=== PATIENT | male | born 1985 | race Caucasian/White ===

== ENCOUNTER 2020-11-06 01:52 | Inpatient (IN) ==
[2020-11-06] MEDS ORDERED: ALBUT/IPRATROP 3MG/0.5MG NEB 3 ML VIAL INH STA (03:04)
[2020-11-06] MEDS ORDERED: SODIUM CHLORIDE 0.9% 1000ML 1,000 ML IV SCH ×2 (03:15→08:46)
[2020-11-06 03:42] LABS: Basophils # (auto) 0.01 K/uL (0-0.2); Basophils % (auto) 0.2 %; Hematocrit (blood only) 40.5 % (42-52); Hemoglobin 14.4 g/dL (14.0-18.0); Immature Granulocytes # (auto) 0.03 K/uL (0.00-0.02); Immature Granulocytes % (auto) 0.5 %; Lymphocytes # (auto) 0.89 K/uL (1.2-3.4); Lymphocytes % (auto) 13.6 %; Mean Corpuscular Hemoglobin 30.3 pg (25-34); Mean Corpuscular Hgb Conc 35.6 g/dL (32-36); Mean Corpuscular Volume 85.1 fL (80-100); Mean Platelet Volume 10.4 fL (7.4-10.4); Monocytes # (auto) 0.54 K/uL (0.11-0.59); Monocytes % (auto) 8.2 %; Neutrophils # (auto) 5.08 K/uL (1.4-6.5); Neutrophils % (auto) 77.5 %; Platelet Count 250 K/uL (130-400); RDW Coefficient of Variation 12.6 % (11.5-14.5); RDW Standard Deviation 39.4 fL (36.4-46.3); Red Blood Count 4.76 M/uL (4.7-6.1); White Blood Count 6.55 K/uL (4.8-10.8)
[2020-11-06 03:55] LABS: Partial Thromboplastin Ratio 0.9; Partial Thromboplastin Time 24.8 Seconds (21.0-31.0); Prothrombin Time 9.8 Seconds (9.0-12.0)
[2020-11-06 04:19] LABS: Alanine Aminotransferase 111 U/L (12-78); Albumin Globulin Ratio 0.7 (0.9-2); Albumin Level 3.2 gm/dl (3.4-5.0); Alkaline Phosphatase 161 U/L (45-117); Aspartate Aminotransferase 80 U/L (15-37); BUN Creatinine Ratio 14.8 (10-20); Bilirubin,Total 0.8 mg/dl (0.2-1); Blood Urea Nitrogen 11 mg/dl (7-18); Calcium 8.6 mg/dl (8.5-10.1); Carbon Dioxide 27 mmol/L (21-32); Chloride 106 mmol/L (98-107); Creatinine Clr Calc Pharmacy 147.9 ml/min; Est GFR (African American) 140.1; Est GFR (Non-African American) 120.9; Globulin 4.3 gm/dl (2.5-4.0); Glucose 133 mg/dl (70-99); Magnesium 2.2 mg/dl (1.8-2.4); Potassium 4.2 mmol/L (3.5-5.1); Sodium 138 mmol/L (136-145); Total Protein 7.5 gm/dl (6.4-8.2); Troponin I < 0.015 ng/ml (0-0.045)
[2020-11-06] MEDS ORDERED: OPTIRAY 350 500ml IV ONE (05:36)
--- NOTE | 2020-11-06 07:01 | Emergency Department Note ---
History of Present Illness General Chief complaint: Shortness of Breath/Dyspnea Stated complaint: SOB, COVID+10/28/20 Source: patient and RN notes reviewed Mode of arrival: ambulatory Limitations: no limitations History of Present Illness Provider complaint: SOB, COVID+ This pt is a 35 yo male who presents to the ED with c/o SOB, cough and is known to be COVID + as of 10/28. He states he started prednisone with his PCP yesterday but sx seems to be worsening. He began checking his pulse ox and has noted it to be in the mid to high 80s at times. He is feeling discouraged as he hasn't seen his and children for ~2 weeks now. He denies high fecers, but admits to dry cough, nausea and some CP with cough. 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 and A total of 10 systems reviewed and were otherwise negative Physical Exam Vital Signs Vital Signs - 24 hr 11/06/20 01:57 11/06/20 02:58 11/06/20 03:06 Temperature 36.6 C Temperature Source Temporal Artery Scan Pulse Rate 105 H 96 H 96 H Pulse Rate from SpO2 Sensor 97 H 98 H Respiratory Rate 18 22 25 H Respiratory Effort / Characteristics Blood Pressure 164/83 H 146/90 H Blood Pressure Mean 110 108 Blood Pressure Position Sitting Pulse Oximetry 93 92 92 Oxygen Delivery Method Room Air Oxygen Flow Rate Sepsis Recent Fever Within 48 Hours No Sepsis New/Unexplained Change in Mental Status No Sepsis Action Taken by Nursing No Action Required 11/06/20 03:18 11/06/20 03:30 11/06/20 03:31 Temperature Temperature Source Pulse Rate 100 H 96 H 98 H Pulse Rate from SpO2 Sensor 100 H 96 H 97 H Respiratory Rate 23 20 25 H Respiratory Effort / Characteristics Blood Pressure 140/83 143/83 H Blood Pressure Mean 102 103 Blood Pressure Position Pulse Oximetry 93 93 94 Oxygen Delivery Method Oxygen Flow Rate Sepsis Recent Fever Within 48 Hours Sepsis New/Unexplained Change in Mental Status Sepsis Action Taken by Nursing 11/06/20 04:00 11/06/20 04:01 11/06/20 04:03 Temperature Temperature Source Pulse Rate 105 H 108 H Pulse Rate from SpO2 Sensor 104 H 107 H Respiratory Rate 24 26 H 22 Respiratory Effort / Characteristics Non-Labored Spontaneous Blood Pressure 137/79 Blood Pressure Mean 98 Blood Pressure Position Pulse Oximetry 94 94 94 Oxygen Delivery Method Nasal Cannula Oxygen Flow Rate 3 3 3 Sepsis Recent Fever Within 48 Hours Sepsis New/Unexplained Change in Mental Status Sepsis Action Taken by Nursing 11/06/20 04:30 11/06/20 04:31 11/06/20 05:00 Temperature Temperature Source Pulse Rate 109 H 108 H 111 H Pulse Rate from SpO2 Sensor 109 H 109 H 112 H Respiratory Rate 24 24 26 H Respiratory Effort / Characteristics Blood Pressure 131/72 135/74 Blood Pressure Mean 91 94 Blood Pressure Position Pulse Oximetry 91 91 88 L Oxygen Delivery Method Oxygen Flow Rate 3 3 3 Sepsis Recent Fever Within 48 Hours Sepsis New/Unexplained Change in Mental Status Sepsis Action Taken by Nursing 11/06/20 05:01 11/06/20 05:32 11/06/20 05:33 Temperature Temperature Source Pulse Rate 115 H 122 H 119 H Pulse Rate from SpO2 Sensor 117 H 122 H 120 H Respiratory Rate 25 H 47 H 24 Respiratory Effort / Characteristics Blood Pressure 138/72 Blood Pressure Mean 94 Blood Pressure Position Pulse Oximetry 88 L 92 92 Oxygen Delivery Method Oxygen Flow Rate 3 5 5 Sepsis Recent Fever Within 48 Hours Sepsis New/Unexplained Change in Mental Status Sepsis Action Taken by Nursing 11/06/20 06:00 11/06/20 06:01 Temperature Temperature Source Pulse Rate 110 H 114 H Pulse Rate from SpO2 Sensor 109 H 114 H Respiratory Rate 18 31 H Respiratory Effort / Characteristics Blood Pressure 137/71 Blood Pressure Mean 93 Blood Pressure Position Pulse Oximetry 91 91 Oxygen Delivery Method Oxygen Flow Rate 5 5 Sepsis Recent Fever Within 48 Hours Sepsis New/Unexplained Change in Mental Status Sepsis Action Taken by Nursing Vital signs reviewed. General: Somewhat ill-appearing 35 yo male, in no significant distress. HEENT: No scleral icterus, PERRLA, neck supple. Atraumatic. Cardiovascular: Regular rate and rhythm, no extra sounds. Pulmonary: Coarse breath sounds to auscultation bilaterally, normal work of breathing. Dry cough. Abdomen: Soft, nontender, nondistended, positive bowel sounds. Musculoskeletal: Atraumatic, no peripheral edema. Neurologic: Patient awake alert and oriented x 3 Skin: Warm, dry, no rash Course Administered Medications Discontinued Medications Acetaminophen (Acetaminophen 325 Mg Tab) 650 mg PO Q4H PRN PRN Reason: Pain or Fever Stop: 12/06/20 08:45 Last Admin: 11/06/20 10:20 Dose: 650 mg Documented by: [id number] Albuterol (Albut/Ipratrop 3mg/0.5mg Neb 3 Ml Vial) 3 ml INH NOW STA Stop: 11/06/20 03:05 Last Admin: 11/06/20 04:01 Dose: 3 ml Documented by: [id number] Enoxaparin Sodium (Enoxaparin Inj 40 Mg/0.4 Ml Syr) 40 mg SQ Q24H [facility] Stop: 12/06/20 08:59 Last Admin: 11/09/20 08:27 Dose: 40 mg Documented by: [id number] Admin: 11/08/20 08:30 Dose: 40 mg Documented by: [id number] Admin: 11/07/20 08:32 Dose: 40 mg Documented by: [id number] Admin: 11/06/20 10:13 Dose: 40 mg Documented by: [id number] Sodium Chloride (Nss 1000ml) 1,000 mls @ 999 mls/hr IV .Q1H1M ERIN Stop: 11/06/20 04:15 Last Infusion: 11/06/20 04:34 Dose: 0 mls/hr Documented by: [id number] Admin: 11/06/20 03:25 Dose: 999 mls/hr Documented by: [id number] Sodium Chloride (Nss 1000ml) 1,000 mls @ 80 mls/hr IV .[id number] ERIN Stop: 11/06/20 21:15 Last Infusion: 11/07/20 00:32 Dose: 0 mls/hr Documented by: [id number] Infusion: 11/06/20 12:05 Dose: 80 mls/hr Documented by: [id number] Infusion: 11/06/20 10:20 Dose: 0 mls/hr Documented by: [id number] Admin: 11/06/20 10:17 Dose: 80 mls/hr Documented by: [id number] Remdesivir 200 mg/ Sodium (Chloride) 250 mls @ 125 mls/hr IV 0930 ONE; Protocol Stop: 11/06/20 11:29 Last Infusion: 11/06/20 12:05 Dose: 0 mls/hr Documented by: [id number] Admin: 11/06/20 10:09 Dose: 125 mls/hr Documented by: [id number] Remdesivir 100 mg/ Sodium (Chloride) 250 mls @ 250 mls/hr IV Q24H ERIN; Protocol Stop: 11/10/20 12:59 Last Infusion: 11/08/20 12:32 Dose: 0 mls/hr Documented by: [id number] Admin: 11/08/20 11:31 Dose: 250 mls/hr Documented by: [id number] Infusion: 11/07/20 13:27 Dose: 0 mls/hr Documented by: [id number] Admin: 11/07/20 12:19 Dose: 250 mls/hr Documented by: [id number] Dexamethasone 6 mg/ Syringe 1.5 mls @ 1 mls/min IV DAILY ERIN Stop: 11/16/20 08:59 Last Admin: 11/09/20 08:27 Dose: 1 mls/min Documented by: [id number] Admin: 11/08/20 08:30 Dose: 1 mls/min Documented by: [id number] Admin: 11/07/20 08:32 Dose: 1 mls/min Documented by: [id number] Admin: 11/06/20 10:11 Dose: 1 mls/min Documented by: [id number] Ioversol (Optiray 350 500ml) 110 ml IV ONCE ONE Stop: 11/06/20 05:37 Last Admin: 11/06/20 05:36 Dose: 110 ml Documented by: [id number] Sodium Chloride (Sodium Chloride 0.9% 10ml Flush) 30 ml IV DAILY@1300 ERIN Stop: 11/10/20 13:01 Last Admin: 11/08/20 13:39 Dose: 30 ml Documented by: [id number] Admin: 11/07/20 12:19 Dose: 30 ml Documented by: [id number] Admin: 11/06/20 12:05 Dose: 30 ml Documented by: [id number] Medical Decision Making Differential Diagnosis Viral syndrome, COVID, pharyngitis, pneumonia, influenza, meningitis, urinary tract infection, sepsis, bacteremia, as well as other pathologies. Medical Records Attestation: I reviewed the patient's medical records. Home Medications Current Medication List: was personally reviewed by me Laboratory Data Attestation: I reviewed the patient's lab results. Result diagrams: 11/07/20 05:43 11/09/20 07:49 Lab Results 11/06/20 11/06/20 11/06/20 Range/Units 03:24 03:30 03:30 WBC 6.55 (4.8-10.8) K/uL RBC 4.76 (4.7-6.1) M/uL Hgb 14.4 (14.0-18.0) g/dL Hct 40.5 L (42-52) % MCV 85.1 (80-100) fL MCH 30.3 (25-34) pg MCHC 35.6 (32-36) g/dL RDW Std Deviation 39.4 (36.4-46.3) fL RDW Coeff of Yina 12.6 (11.5-14.5) % Plt Count 250 (130-400) K/uL MPV 10.4 (7.4-10.4) fL Immature Gran % (Auto) 0.5 % Neut % (Auto) 77.5 % Lymph % (Auto) 13.6 % [place] % (Auto) 8.2 % Eos % (Auto) 0.0 % Baso % (Auto) 0.2 % Neut # (Auto) 5.08 (1.4-6.5) K/uL Lymph # (Auto) 0.89 L (1.2-3.4) K/uL [place] # (Auto) 0.54 (0.11-0.59) K/uL Eos # (Auto) 0.00 (0-0.5) K/uL Baso # (Auto) 0.01 (0-0.2) K/uL Immature Gran # (Auto) 0.03 H (0.00-0.02) K/uL PT (9.0-12.0) Seconds INR (0.9-1.1) APTT (21.0-31.0) Seconds PTT Ratio Sodium 138 (136-145) mmol/L Potassium 4.2 (3.5-5.1) mmol/L Chloride 106 (98-107) mmol/L Carbon Dioxide 27 (21-32) mmol/L Anion Gap 5.0 (3-11) BUN 11 (7-18) mg/dl Creatinine 0.72 (0.6-1.4) mg/dl Est Cr Clr Drug Dosing 147.9 ml/min Est GFR ( Amer) 140.1 Est GFR (Non-Af Amer) 120.9 BUN/Creatinine Ratio 14.8 (10-20) Glucose 133 H (70-99) mg/dl Calcium 8.6 (8.5-10.1) mg/dl Magnesium 2.2 (1.8-2.4) mg/dl Total Bilirubin 0.8 (0.2-1) mg/dl AST 80 H (15-37) U/L ALT 111 H (12-78) U/L Alkaline Phosphatase 161 H (45-117) U/L Troponin I < 0.015 (0-0.045) ng/ml Total Protein 7.5 (6.4-8.2) gm/dl Albumin 3.2 L (3.4-5.0) gm/dl Globulin 4.3 H (2.5-4.0) gm/dl Albumin/Globulin Ratio 0.7 L (0.9-2) Procalcitonin 0.20 (0-0.5) ng/ml Specimen Hemolysis 11/06/20 Range/Units 03:30 WBC (4.8-10.8) K/uL RBC (4.7-6.1) M/uL Hgb (14.0-18.0) g/dL Hct (42-52) % MCV (80-100) fL MCH (25-34) pg MCHC (32-36) g/dL RDW Std Deviation (36.4-46.3) fL RDW Coeff of Yina (11.5-14.5) % Plt Count (130-400) K/uL MPV (7.4-10.4) fL Immature Gran % (Auto) % Neut % (Auto) % Lymph % (Auto) % [place] % (Auto) % Eos % (Auto) % Baso % (Auto) % Neut # (Auto) (1.4-6.5) K/uL Lymph # (Auto) (1.2-3.4) K/uL [place] # (Auto) (0.11-0.59) K/uL Eos # (Auto) (0-0.5) K/uL Baso # (Auto) (0-0.2) K/uL Immature Gran # (Auto) (0.00-0.02) K/uL PT 9.8 (9.0-12.0) Seconds INR 1.0 (0.9-1.1) APTT 24.8 (21.0-31.0) Seconds PTT Ratio 0.9 Sodium (136-145) mmol/L Potassium (3.5-5.1) mmol/L Chloride (98-107) mmol/L Carbon Dioxide (21-32) mmol/L Anion Gap (3-11) BUN (7-18) mg/dl Creatinine (0.6-1.4) mg/dl Est Cr Clr Drug Dosing ml/min Est GFR ( Amer) Est GFR (Non-Af Amer) BUN/Creatinine Ratio (10-20) Glucose (70-99) mg/dl Calcium (8.5-10.1) mg/dl Magnesium (1.8-2.4) mg/dl Total Bilirubin (0.2-1) mg/dl AST (15-37) U/L ALT (12-78) U/L Alkaline Phosphatase (45-117) U/L Troponin I (0-0.045) ng/ml Total Protein (6.4-8.2) gm/dl Albumin (3.4-5.0) gm/dl Globulin (2.5-4.0) gm/dl Albumin/Globulin Ratio (0.9-2) Procalcitonin (0-0.5) ng/ml Specimen Hemolysis Imaging Data Radiologist's Impression: Chest CTA 11/06/20 03:05 CT angio chest PE protocol CT DOSE: 357.64 mGy.cm HISTORY: 35 years-old Male with Dyspnea, COVID, ?PE. Acute shortness of breath. COVID Positive. TECHNIQUE: Multiple CTA images of the chest were obtained after the intravenous administration of 110 ml Optiray. Coronal and sagittal MIPS were obtained from the axial data set and were submitted for review. All measurements were obtained according to NASCET criteria. A dose lowering technique was utilized adhering to the principles of ALARA. COMPARISON: None. FINDINGS: CTA: Heart is upper limits of normal in size. No pericardial effusion. Minimal coronary artery calcifications. No thoracic aortic aneurysm or dissection. There is patency of the imaged great vessels. The pulmonary arterial tree is opacified to level of the proximal subsegmental branches and demonstrates no filling defects to suggest thromboembolic disease. CT CHEST: Unremarkable thyroid. Mildly enlarged subcarinal and hilar lymph nodes measure up to 10 mm. No pneumothorax or pleural effusion. Bilateral groundglass and consolidative opacities are present within all lobes bilaterally. Central airways are patent. No pneumoperitoneum. Suggested splenomegaly. No acute process of the imaged upper abdomen. Unremarkable soft tissues. No acute fracture or suspicious bone lesion. IMPRESSION: 1. No pulmonary emboli. 2. Multifocal bilateral pulmonary opacities compatible with viral pneumonia. 3. Mediastinal and hilar adenopathy, likely reactive. ACT 112: Negative or not required by law. The above report was generated using voice recognition software. It may contain grammatical, syntax or spelling errors. Electronically signed by: Kolby Valenzuela M.D. 11/06/2020 8:14 AM ECG Data Attestation: I personally reviewed and interpreted this ECG as follows: Indication: + SOB/dyspnea and + tachycardia Rate (beats per minute): 98 Rhythm: + normal sinus ECG Intervals/blocks: + Incomplete right bundle branch block and + Normal QT-c ECG [place]: + Normal ECG ST segments: + Normal ST segments Comparison ECG Date: no prior available Blood Pressure Blood Pressure Findings: Normal blood pressure Blood Pressure Disposition: did not require urgent referral MDM Narrative This pt was evaluated and appeared to be in no distress. IV access was obtained and lab work was drawn. An order for cardiac monitoring was placed and the pt was noted to be in a NSR at 96 bpm. Pt was medicated with IV dexamethasone and a duoneb tx. He was hydrated with NSS. CXR is consistent with COVID PNA. As pt is requiring O2 supplementation he was referred to the hospitalist service for further management. He is aware of the plan and agrees. Impression & Plan Acute hypoxemic respiratory failure due to COVID-19 Discharge Plan Visit Data Chief Complaint: Shortness of Breath/Dyspnea Stated Complaint: SOB, COVID+10/28/20 ED Provider: Angelica Carvajal Discharge Problem: Acute hypoxemic respiratory failure due to COVID-19 Patient Disposition: Admitted As Inpatient Discharge Instructions Interventions: ED Discharge Assessment Last Done: 11/06/20 08:10
--- NOTE | 2020-11-06 08:16 | CT Scan Report ---
CT angio chest PE protocol CT DOSE: 357.64 mGy.cm HISTORY: 35 years-old Male with Dyspnea, COVID, ?PE. Acute shortness of breath. COVID Positive. TECHNIQUE: Multiple CTA images of the chest were obtained after the intravenous administration of 110 ml Optiray. Coronal and sagittal MIPS were obtained from the axial data set and were submitted for review. All measurements were obtained according to NASCET criteria. A dose lowering technique was u tilized adhering to the principles of ALARA. COMPARISON: None. FINDINGS: CTA: Heart is upper limits of normal in size. No pericardial effusion. Minimal coronary artery calcificati ons. No thoracic aortic aneurysm or dissection. There is patency of the imaged great vessels. The pul monary arterial tree is opacified to level of the proximal subsegmental branches and demonstrates no filling defects to suggest thromboembolic disease. CT CHEST: Unremarkable thyroid. Mildly enlarged subcarinal and hilar lymph nodes measure up to 10 mm. No pneumo thorax or pleural effusion. Bilateral groundglass and consolidative opacities are present within all lobes bilaterally. Central airways are patent. No pneumoperitoneum. Suggested splenomegaly. No acute process of the imaged upper abdomen. Unremarkab le soft tissues. No acute fracture or suspicious bone lesion. IMPRESSION: 1. No pulmonary emboli. 2. Multifocal bilateral pulmonary opacities compatible with viral pneumonia. 3. Mediastinal and hilar adenopathy, likely reactive. ACT 112: Negative or not required by law. The above report was generated using voice recognition software. It may contain grammatical, syntax o r spelling errors. Electronically signed by: Kolby Valenzuela M.D. 11/06/2020 8:14 AM
[2020-11-06] MEDS ORDERED: LEVALBUTEROL 1.25MG/0.5ML NEB NEB PRN (08:46)
[2020-11-06] MEDS ORDERED: ACETAMINOPHEN 325 MG TAB PO PRN (08:46)
[2020-11-06] MEDS ORDERED: NITROGLYCERIN SL 0.4 MG/TAB TAB SL PRN (08:46)
[2020-11-06] MEDS ORDERED: BENZONATATE 100 MG CAPSULE PO PRN (08:46)
[2020-11-06] MEDS ORDERED: ALBUTEROL HFA 8 GM INHALER INH PRN (08:46)
[2020-11-06] MEDS ORDERED: REMDESIVIR 200 MG in SODIUM CHLORIDE 0.9% 210 ML IV ONE (09:30)
--- NOTE | 2020-11-06 09:36 | History and Physical Report ---
DATE OF ADMISSION: 11/06/2020 CHIEF COMPLAINT: Shortness of breath, history of COVID. HISTORY OF PRESENT ILLNESS: This is a 35-year-old male with no significant past medical history, presents with shortness of breath. The patient was diagnosed with COVID on 10/28/2020, since then he initially had some chest heaviness for 2-3 days, then he started to develop high fevers, nausea on and off, poor appetite, loss of sense of taste, sense of smell is down, body aches and lot of cough. When he gets coughing spell, he gets short of breath. He has been checking his oxygen saturations at home, the other day it was 90%. His primary doctor started him on prednisone. Yesterday afternoon, oxygen saturation was going into less than 88% and when he decided to come to the ER. In the ER, his oxygen was 88%, currently placed on 3 liters oxygen and saturating above 90%. Resting comfortably and hemodynamically stable, able to give history. He is talking in full sentences. Currently, denies any blurred visions, no earache. Has some runny nose, no sore throat, no difficulty swallowing, currently has some chest pain when he is coughing. No abdominal pain, no diarrhea or constipation. Normal bladder movements. No rash, no swelling in the legs. ALLERGIES: No known drug allergies. PAST MEDICAL HISTORY: None. PAST SURGICAL HISTORY: Hernia surgery. MEDICATIONS: Currently, he is on prednisone. FAMILY HISTORY: No family history in file. SOCIAL HISTORY: No smoking, alcohol rarely. No drug use. REVIEW OF SYMPTOMS: As per HPI. Rest of review of systems negative. PHYSICAL EXAMINATION: GENERAL: The patient is of moderate build, not in acute distress. VITAL SIGNS: Temperature 36.6, pulse 110, respiratory rate in 20s, blood pressure 137/71, oxygen 88% on room air, currently 91% on 3 liters. HEENT: Pupils equal, round, reactive to light. Oral mucosa moist. NECK: No JVD, no masses. CARDIOVASCULAR: S1, S2 heard. Tachycardia. No murmurs. RESPIRATORY SYSTEM: Normal AP diameter. No accessory muscle use. No wheezing, no crackles. ABDOMEN: Soft, bowel sounds present, nontender. No distention. CENTRAL NERVOUS SYSTEM: Cranial nerves II-XII grossly intact. Nonfocal. EXTREMITIES: No edema, no erythema. LABORATORY DATA: WBC 6.5, hemoglobin 14.4, hematocrit 40.5, platelets 250. PT 9.8, INR 1, APTT 24.8. Sodium 138, potassium 4.2, chloride 106, bicarbonate 27, BUN 11, creatinine 0.7, serum glucose 133, calcium 8.6, magnesium 2.2, total bilirubin 0.8, AST 80, ALT 111, alkaline phosphatase 161. Troponin I less than 0.015. EKG: Poor quality data. Normal sinus rhythm with rate of 98, incomplete right bundle branch block, no previous EKGs available. IMAGING: CTA of the chest preliminary report, no PE, multifocal pneumonia. ASSESSMENT AND PLAN: This is a 35-year-old male who presents with COVID pneumonia and hypoxia. 1. COVID pneumonia, multifocal pneumonia, hypoxia requiring oxygen 3 liters, but patient has symptoms for last almost 10 days, diagnosed on 10/28/2020. We will start him on IV Decadron and IV Remdesivir. Follow the Remdesivir labs. Follow the inflammatory markers, closely monitor in med tele. We will give fluids for 1 liter and nebs p.r.n. 2. Deep venous thrombosis prophylaxis, Lovenox. DISPOSITION: [facility]. Expect discharge home and follow up with family doctor. PT and OT prior to discharge. Social service to help with discharge planning. VIJI
[2020-11-06] MEDS: dexAMETHasone 6 MG in SYRINGE 0 ML IV SCH (10:11)
[2020-11-06] MEDS: ENOXAPARIN INJ 40 MG/0.4 ML SYR SQ SCH (10:13)
[2020-11-06] MEDS: SODIUM CHLORIDE 0.9% 10ML FLUSH IV SCH (12:05)
[2020-11-07 06:14] LABS: Basophils # (auto) 0.02 K/uL (0-0.2); Basophils % (auto) 0.3 %; Eosinophils # (auto) 0.01 K/uL (0-0.5); Eosinophils % (auto) 0.1 %; Hemoglobin 13.1 g/dL (14.0-18.0); Immature Granulocytes # (auto) 0.05 K/uL (0.00-0.02); Immature Granulocytes % (auto) 0.6 %; Lymphocytes # (auto) 1.76 K/uL (1.2-3.4); Lymphocytes % (auto) 22.7 %; Mean Corpuscular Hemoglobin 29.8 pg (25-34); Mean Corpuscular Hgb Conc 34.5 g/dL (32-36); Mean Corpuscular Volume 86.6 fL (80-100); Mean Platelet Volume 9.8 fL (7.4-10.4); Monocytes # (auto) 0.84 K/uL (0.11-0.59); Monocytes % (auto) 10.8 %; Neutrophils # (auto) 5.08 K/uL (1.4-6.5); Neutrophils % (auto) 65.5 %; Platelet Count 308 K/uL (130-400); RDW Coefficient of Variation 13.2 % (11.5-14.5); RDW Standard Deviation 42.2 fL (36.4-46.3); Red Blood Count 4.39 M/uL (4.7-6.1); White Blood Count 7.76 K/uL (4.8-10.8)
[2020-11-07 06:34] LABS: Alanine Aminotransferase 118 U/L (12-78); Albumin Level 2.7 gm/dl (3.4-5.0); Aspartate Aminotransferase 71 U/L (15-37); BUN Creatinine Ratio 19.5 (10-20); Bilirubin Direct 0.1 mg/dl (0-0.2); Blood Urea Nitrogen 13 mg/dl (7-18); Calcium 8.9 mg/dl (8.5-10.1); Carbon Dioxide 28 mmol/L (21-32); Chloride 108 mmol/L (98-107); Creatinine Clr Calc Pharmacy 161.3 ml/min; Est GFR (African American) 145.2; Est GFR (Non-African American) 125.3; Glucose 99 mg/dl (70-99); Magnesium 2.2 mg/dl (1.8-2.4); Sodium 140 mmol/L (136-145)
[2020-11-07 06:38] LABS: Alkaline Phosphatase 137 U/L (45-117); Bilirubin,Total 0.5 mg/dl (0.2-1); Ferritin 752.8 ng/ml (8-388); Total Protein 6.3 gm/dl (6.4-8.2); Troponin I < 0.015 ng/ml (0-0.045)
[2020-11-07 06:54] LABS: D Dimer 360 ug/L FEU (0-500)
[2020-11-07] MEDS: dexAMETHasone 6 MG in SYRINGE 0 ML IV SCH (08:32)
[2020-11-07] MEDS: ENOXAPARIN INJ 40 MG/0.4 ML SYR SQ SCH (08:32)
[2020-11-07] MEDS: REMDESIVIR 100 MG in SODIUM CHLORIDE 0.9% 230 ML IV SCH (12:19)
[2020-11-07] MEDS: SODIUM CHLORIDE 0.9% 10ML FLUSH IV SCH (12:19)
--- NOTE | 2020-11-07 15:30 | Hospitalist Progress Note ---
Date of Service November 07, 2020 Assessment & Plan (1) Acute hypoxemic respiratory failure due to COVID-19: Patient presented with 10-day history of cough/shortness of breath dyspnea on exertion, chest heaviness COVID-19 test was positive approximately 10 days back On admission patient was hypoxic in low 80s, required 6 L oxygen via nasal cannula Was started treatment with IV remdesivir/dexamethasone CT chest shows diffuse bilateral infiltrate suggestive of viral infection Patient continues to improve gradually, Hypoxemia has improved, currently oxygen weaned down to 2 L per nasal cannula, Patient able to talk in complete sentences, states his energy level has improved than before, normal appetite Has not had any new fever, resolution of body ache abdominal pain and discomfort Procalcitonin negative, normal white count no fever, no antibiotic indicated , on IV remdesivir day 2 Respiratory status continues to improve, recommend to complete total 5 days of IV remdesivir treatment Steroids can be changed to p.o. prior to discharge to home. Disposition: Expect to be discharged home once respiratory status improves: Admission and Anticipated Discharge Date Admission Date: November 06, 2020 Subjective Follow-up visit for acute hypoxemic respiratory failure secondary to COVID-19 pneumonia: Patient reports his shortness of breath has improved, no cough, currently on 2 L oxygen via nasal cannula States that he is having less short of breath on activity than yesterday, no orthopnea Has been afebrile, does not have any cough, no chest heaviness Very pleasant, Tolerating diet, no complaint of abdominal pain nausea diarrhea Vitals been stable since admission Review of Systems Review of Systems: All systems reviewed & are unremarkable except as noted in Subjective Physical Exam Physical Exam: Physical exam: General: No acute distress, alert awake oriented x3 HEENT: PERRLA, EOMI, Heart: Regular S1-S2, no carotid bruit, no JVD, no lower extremity edema Lungs: Diminished breath sound, no wheeze or rales Abdomen: Soft nontender, no organomegaly Extremity: No cyanosis, no deformity, normal strength 5 out of 5 with upper and lower Neuro: No focal neurological deficit normal speech, normal visual field, Motor strength : normal both upper and lower extremity, sensation intact Psych: Alert awake oriented x3, normal affect Results & Data Results & Data ([facility]) Vital Signs (Past 12 Hours) Vital Signs Temp Pulse Resp BP Pulse Ox 11/07/20 15:24 36.6 C 79 18 132/81 90 11/07/20 12:00 36.4 C L 85 18 133/83 93 11/07/20 11:46 92 11/07/20 08:23 37.1 C 71 16 137/83 93 11/07/20 04:32 36.7 C 83 16 127/76 94
--- NOTE | 2020-11-07 21:07 | Electrocardiogram Report ---
Test Reason : Blood Pressure : / mmHG Vent. Rate : 098 BPM Atrial Rate : 098 BPM P-R Int : 144 ms QRS Dur : 112 ms QT Int : 354 ms P-R-T Axes : 037 -08 027 degrees QTc Int : 451 ms Poor data quality, interpretation may be adversely affected Normal sinus rhythm Incomplete right bundle branch block Borderline ECG No previous ECGs available Confirmed by Maxwell Champagne ([id number]) on 11/07/2020 9:07:19 PM Referred By: REFERRED SELF Confirmed By:Maxwell Champagne
[2020-11-08 08:08] LABS: Creatinine Clr Calc Pharmacy 154.3 ml/min; Est GFR (African American) 142.6
[2020-11-08] MEDS: dexAMETHasone 6 MG in SYRINGE 0 ML IV SCH (08:30)
[2020-11-08] MEDS: ENOXAPARIN INJ 40 MG/0.4 ML SYR SQ SCH (08:30)
[2020-11-08] MEDS: REMDESIVIR 100 MG in SODIUM CHLORIDE 0.9% 230 ML IV SCH (11:31)
[2020-11-08] MEDS: SODIUM CHLORIDE 0.9% 10ML FLUSH IV SCH (13:39)
--- NOTE | 2020-11-08 23:23 | Hospitalist Progress Note ---
Date of Service November 08, 2020 Assessment & Plan (1) Acute hypoxemic respiratory failure due to COVID-19: Resolved, no hypoxia remains in room air, no cough no shortness of breath or dyspnea on exertion Admitted with 10-day history of cough/shortness of breath dyspnea on exertion, chest heaviness COVID-19 test was positive approximately 10 days back On admission patient was hypoxic in low 80s, required 6 L oxygen via nasal cannula Received treatment with IV remdesivir/dexamethasone CT chest shows diffuse bilateral infiltrate suggestive of viral infection Clinically has improved respiratory status improved to baseline, Not requiring supplemental oxygen's since yesterday, normal appetite, normal energy, no fever or chills since admission Procalcitonin negative, normal white count no fever, no antibiotic indicated Disposition: Plan to discharge home tomorrow Admission and Anticipated Discharge Date Admission Date: November 06, 2020 Subjective Follow-up visit for acute hypoxemic respiratory failure secondary to COVID-19 pneumonia: Patient reports feeling back to his baseline, in room air, no hypoxia no dyspnea on exertion Did not had any cough, or not short of breath No fever or chills, energy almost back to baseline Expecting to be discharged home tomorrow Review of Systems Review of Systems: All systems reviewed & are unremarkable except as noted in Subjective Physical Exam Physical Exam: Please take all medications as instructed on discharge list below. It is recommended that you follow-up with your primary care physician within 1-2 weeks of hospital discharge to ensure you are still doing well. Please call if you have any questions or problems. You can reach a [facility] hospitalist on duty at [facility] 24 hours a day by calling [phone] Results & Data Results & Data ([facility]) Vital Signs (Past 12 Hours) Vital Signs Temp Pulse Pulse Resp BP Pulse Ox 11/08/20 19:14 37 C 83 20 126/80 93 11/08/20 18:42 104 H 11/08/20 16:53 37.1 C 84 20 129/82 91
[2020-11-09] MEDS: ENOXAPARIN INJ 40 MG/0.4 ML SYR SQ SCH (08:27)
[2020-11-09] MEDS: dexAMETHasone 6 MG in SYRINGE 0 ML IV SCH (08:27)
[2020-11-09 08:38] LABS: Creatinine Clr Calc Pharmacy 141.9 ml/min; Est GFR (African American) 137.7; Est GFR (Non-African American) 118.8
--- NOTE | 2020-11-09 10:49 | Hospitalist Progress Note ---
Date of Service November 09, 2020 Assessment & Plan (1) Acute hypoxemic respiratory failure due to COVID-19: Resolved, no hypoxia remains in room air, no cough no shortness of breath or dyspnea on exertion Has been in room air since yesterday, no cough no shortness of breath No fever or chills Admitted with 10-day history of cough/shortness of breath dyspnea on exertion, chest heaviness COVID-19 test was positive approximately 10 days back On admission patient was hypoxic in low 80s, required 6 L oxygen via nasal cannula Received treatment with IV remdesivir/dexamethasone CT chest shows diffuse bilateral infiltrate suggestive of viral infection Procalcitonin negative, normal white count no fever, did not require any antibiotic treatment He does not need negative pressure isolation, droplet precaution discontinued as patient is more than 10 days beyond Covid symptoms/positive test Mild elevation of LFTs: Due to remdesivir treatment, discontinued Repeat LFT in a week Disposition: Able to be discharged home today Admission and Anticipated Discharge Date Admission Date: November 06, 2020 Subjective Follow-up visit for COVID-19 pneumonia/respiratory failure: Symptom has completely resolved, in room air since yesterday no cough no shortness of breath no dyspnea on exertion Stable vitals no fever or chills Per infectious disease patient is day 12 of positive Covid symptoms/Covid positive result, has been asymptomatic for past more than 48 hours, contact and airborne isolation discontinued Discussed with patient feels like his baseline, stable to be discharged home today patient will not need any strict quarantine or home isolation Review of Systems Review of Systems: All systems reviewed & are unremarkable except as noted in Subjective Physical Exam Physical Exam: Physical exam: General: No acute distress, alert awake oriented x3 HEENT: PERRLA, EOMI, Heart: Regular S1-S2, no carotid bruit, no JVD, no lower extremity edema Lungs: Clear to auscultate, no wheeze or rales Abdomen: Soft nontender, no organomegaly Extremity: No cyanosis, no deformity, normal strength 5 out of 5 with upper and lower Neuro: No focal neurological deficit normal speech, normal visual field, Motor strength : normal both upper and lower extremity, sensation intact Psych: Alert awake oriented x3, normal affect Results & Data Results & Data ([facility]) Vital Signs (Past 12 Hours) Vital Signs Temp Pulse Pulse Pulse Resp BP BP 11/09/20 10:42 36.8 C 75 68 18 121/67 123/76 11/09/20 07:23 72 11/09/20 07:17 36.8 C 75 18 123/76 11/09/20 03:06 36.6 C 68 18 114/62 11/09/20 00:20 79 11/08/20 23:23 37.2 C 78 18 L 96 H 121/67 Pulse Ox 11/09/20 10:42 94 11/09/20 07:23 11/09/20 07:17 94 11/09/20 03:06 95 11/09/20 00:20 11/08/20 23:23 2 L
--- NOTE | 2020-11-09 10:52 | Discharge Summary ---
Date of Service November 09, 2020 Admission HPI Per Admitting Provider DICTATED BY: Shay Cortez MD DATE OF ADMISSION: 11/06/2020 CHIEF COMPLAINT: Shortness of breath, history of COVID. HISTORY OF PRESENT ILLNESS: This is a 35-year-old male with no significant past medical history, presents with shortness of breath. The patient was diagnosed with COVID on 10/28/2020, since then he initially had some chest heaviness for 2-3 days, then he started to develop high fevers, nausea on and off, poor appetite, loss of sense of taste, sense of smell is down, body aches and lot of cough. When he gets coughing spell, he gets short of breath. He has been checking his oxygen saturations at home, the other day it was 90%. His primary doctor started him on prednisone. Yesterday afternoon, oxygen saturation was going into less than 88% and when he decided to come to the ER. In the ER, his oxygen was 88%, currently placed on 3 liters oxygen and saturating above 90%. Resting comfortably and hemodynamically stable, able to give history. He is talking in full sentences. Currently, denies any blurred visions, no earache. Has some runny nose, no sore throat, no difficulty swallowing, currently has some chest pain when he is coughing. No abdominal pain, no diarrhea or constipation. Normal bladder movements. No rash, no swelling in the legs. Principal Diagnosis COVID-19 pneumonia. Acute hypoxemic respiratory failure secondary to COVID-19 pneumonia, resolved Discharge Exam Physical exam: General: No acute distress, alert awake oriented x3 HEENT: PERRLA, EOMI, Heart: Regular S1-S2, no carotid bruit, no JVD, no lower extremity edema Lungs: Clear to auscultate, no wheeze or rales Abdomen: Soft nontender, no organomegaly Extremity: No cyanosis, no deformity, normal strength 5 out of 5 with upper and lower Neuro: No focal neurological deficit normal speech, normal visual field, Motor strength : normal both upper and lower extremity, sensation intact Psych: Alert awake oriented x3, normal affect Discharge Data Allergies Allergy/AdvReac Type Severity Reaction Status Date / Time No Known Allergies Allergy Unverified 11/06/20 02:17 Consultations 11/06/20 05:56 ED Decision to Admit Stat Ordered Studies 11/06/20 03:05 CT angio chest PE protocol Urgent Hospital Course (1) Acute hypoxemic respiratory failure due to COVID-19: Resolved, no hypoxia remains in room air, no cough no shortness of breath or dyspnea on exertion Has been in room air since yesterday, no cough no shortness of breath No fever or chills Admitted with 10-day history of cough/shortness of breath dyspnea on exertion, chest heaviness COVID-19 test was positive approximately 10 days back On admission patient was hypoxic in low 80s, required 6 L oxygen via nasal cannula Received treatment with IV remdesivir/dexamethasone CT chest shows diffuse bilateral infiltrate suggestive of viral infection Procalcitonin negative, normal white count no fever, did not require any antibiotic treatment He does not need negative pressure isolation, droplet precaution discontinued as patient is more than 10 days beyond Covid symptoms/positive test Mild elevation of LFTs: Due to remdesivir treatment, discontinued Repeat LFT in a week Disposition: Nohemi to be discharged home today Total Time Total Time Spent Total Time Spent (In Minutes): 35 mins Total Time Includes: Examination of the Patient, Discharge Planning and Medication Reconciliation Discharge Plan Discharge Items Patient Disposition: Home - Self-Care Reason For Visit: SOB Discharge Diagnosis: COVID-19 pneumonia. Acute hypoxemic respiratory failure secondary to COVID-19 pneumonia, resolved Activity: Resume your previous activity Lifting: None Bathing: No limitations Exercise/Sports: As tolerated Driving/Machine Use: No limitations Non-emergency contact: Primary Care Provider Call non-emergency contact if: you have any medication questions Follow-up/Referrals: Jeff Fitzgerald PA-C [Primary Care Provider] - (Date & Time 11/12/2020 9:20 AM Provider Jeff Fitzgerald PA-C Department [facility] PLEASE NOTE THAT THIS IS A TELEHEALTH APPOINTMENT. PLEASE FOLLOW THE INSTRUCTIONS PROVIDED IN YOUR EMAIL. IF YOU HAVE ANY QUESTIONS REGARDING THIS APPOINTMENT, PLEASE CALL ) Diet: Regular Addtl Attending Provider Instructions: Please take all medications as instructed on discharge list below. It is recommended that you follow-up with your primary care physician within 1-2 weeks of hospital discharge to ensure you are still doing well. Please call if you have any questions or problems. 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 Liver function test been a little bit elevated possibly secondary to IV remdesivir, antiviral drug that was treated for COVID-19 Avoid taking Tylenol, no more than 2 gm a day And utilize Motrin, Advil as needed for aches and pains Lab work: Liver function test in 1 week Continue to drink plenty of fluids, rest to recover from this acute viral illness No restriction in activity and exercise-continue to do as tolerated Pending Studies at Discharge: No Stand-Alone Forms: My [facility], Work/School Release (Inpt), Smoking Cessation Medications and DC Order Prescriptions: New prednisone 20 mg tablet 20 mg PO UD Qty: 6 RF: 0 Continued benzonatate 100 mg Capsule 100 mg PO TID PRN (Reason: Cough) RF: 0 Discontinued prednisone 20 mg Tablet 20 mg PO .TAPER UD RF: 0 acetaminophen [Tylenol Extra Strength] 500 mg Tablet 1,000 mg PO Q6H PRN (Reason: Fever Or Pain) RF: 0 Discharge Orders: Discharge Order (Routine); Ordered 11/09/20 Ordered By: Toma Fenton/Other Patient Handouts: COVID-19 Home Care Admission Data Admit Date/Time: 11/06/20 07:00 Attending Provider: Toma Dan Admit Provider: Shay Cortez Primary Care Provider: Jeff Fitzgerald Other Providers: Shay Cortez Other Interventions: Discharge Summary Assessment (RN) Last Done: 11/09/20 10:42
--- NOTE | 2020-11-09 13:25 | XRay Report ---
SINGLE VIEW CHEST CLINICAL HISTORY: Covid pneumonia. FINDINGS: An AP, portable, upright chest radiograph is correlated with chest CT dated 11/06/2020. The c ardiomediastinal silhouette is unremarkable. Multifocal airspace consolidation is again seen througho ut both lungs. No large pleural effusion or pneumothorax is identified. The bony thorax is grossly in tact. IMPRESSION: Multifocal airspace consolidation is consistent with the reported history of a viral pneu monia. Radiographic follow-up to resolution is recommended. ACT 112: Negative or not required by law. Electronically signed by: Ronnell Clinton M.D. 11/09/2020 1:23 PM
== END 2020-11-09 11:04 | disposition home or self-care (01) | DRG 177 ==
LOC: ED 01:52 → SUATTDRO 07:00 → 2W 07:00